=== PATIENT | female | born 1960 | race Caucasian/White ===

== ENCOUNTER 2020-03-27 18:45 | Inpatient (IN) | payer OTHER ==
[~2020-03-27] VITALS: Ht 165.1 cm; Wt 98.2 kg
--- NOTE | ~2020-03-27 | HEMODYNAMI ---
PATIENT:RAINA FRANZ MEDICAL RECORD: [id number] : 64 [place] [address] ADMISSION DATE: 03/27/20 Generatedon:03/28/202011:54 Patient name: RAINA FRANZ Patient #: [id number] : 1960 Date of study: 03/28/2020 Page: Of Hemodynamic Procedure Report Patient Data Patient Demographics Procedure consent was obtained First Name: RAINA Gender: Female Last Name: MARIA M : 1960 Patient #: [id number] Age: 59 year(s) Race: SSN: [id number] Additional ID: [id number] Contact details [address]: [address] [place] [address] State: [place] City: [place] Zip code: [address] Admission Admission Data Admission Date: 03/27/2020 Admission Time: 18:45 Room #: [facility] Procedure Procedure Types Cath Procedure Diagnostic Procedure Intra-Aortic Balloon Pump Sedation Charges Moderate Sedation up to 15 minutes Procedure Description Procedure Date Procedure Date: 03/28/2020 Procedure Start Time: 11:20 Procedure End Time: 11:53 Procedure Staff Name Function Blade Sim MD Performing Physician Savanna Pickering RT Monitor Luis Colindres RT Scrub Moy Cook RN Nurse Procedure Data Cath Procedure Fluoroscopy Diagnostic fluoroscopy Total fluoroscopy Time: 1.1 time: 1.1 min min Diagnostic fluoroscopy Total fluoroscopy dose: 27 dose: 27 mGy mGy Contrast Material Contrast Material Type Amount (ml) Isovue 300 0 Entry Location Entry Primary Successful Side Size Upsize Upsize Entry Closure Succes sful Closure Location (Fr) 1 (Fr) 2 (Fr) Remarks Device Remarks Femoral Left 8 Fr artery Estimated blood loss: 5 ml Procedure Complications No complications Procedure Medications Medication Administration Route Dosage Oxygen etCO2 Nasal cannula 2 l/min Lidocaine 2% added to field 20 Heparin Flush Bag added to field 2 bags (1000units/500ml NS) 0.9% NaCl I.V. 50 ml/hr Versed I.V. 1 mg Fentanyl I.V. 50 mcg Nitro (50mg/250 D5W) I.V. drip 10 mcg/min Versed I.V. 1 mg Fentanyl I.V. 50 mcg Heparin Drip I.V. drip 1000 units/hr (36727lmlcw/250 D5W) Nitro (50mg/250 D5W) Hemodynamics Rest Heart Rate: 83 (bpm) Snapshots Pre Cath Intra NCS Post Cath Vital Signs Time Heart Resp SPO2 etCO2 NIBP (mmHg) Rhythm Pain Sedation Rate (ipm) (%) (mmHg) Status Level (bpm) 11:08:24 83 21 94 0 125/78(98) NSR 0 (11) 10(A) , No pain 11:12:28 85 16 94 36.8 125/83(101) NSR 0 (11) 10(A) , No pain 11:16:34 82 14 97 42 118/77(97) NSR 0 (11) 10(A) , No pain 11:20:40 80 13 98 45.8 121/74(104) NSR 0 (11) 9(A) , No pain 11:24:49 78 13 98 44.3 113/69(88) NSR 0 (11) 9(A) , No pain 11:29:01 80 13 97 42.8 98/53(77) NSR 0 (11) 10(A) , No pain Medications Time Medication Route Dose Verified Delivered Reason Not es Effectiveness by by 11:11:16 Oxygen etCO2 2 l/min Blade Winter used for Nasal St Gary Cook RN procedure cannula 11:11:23 Lidocaine 2% added 20ml vial Blade Murguia for local to [facility] anesthetic field MD CAIN 11:11:29 Heparin Flush added 2 bags Blade Murguia used for Bag to [facility] procedure (1000units/500ml field MD CAIN NS) 11:11:37 0.9% NaCl I.V. 50 ml/hr Blade Winter Per [facility] Gary Cook RN physician 11:12:23 Nitro (50mg/250 I.V. 10 mcg/min Blade Winter Per con tinued D5W) drip St Gary Cook RN physician from icu 11:15:16 Versed I.V. 1 mg Blade Buffedenilson Britton RN sedation 11:15:22 Fentanyl I.V. 50 mcg Blade Britton RN sedation 11:20:24 Versed I.V. 1 mg Blade Britton RN sedation 11:20:28 Fentanyl I.V. 50 mcg Blade Winter for [facility] Gary Cook RN sedation 11:31:21 Nitro (50mg/250 mcg/min- dis continued D5W) discontinued per cecelia 11:33:13 Heparin Drip I.V. 1000 Blade Winter Per rogers ified via (81712elxng/250 drip units/hr St Gary Cook RN physician alaris pump D5W) MD with dr rai Procedure Log Time Note 10:51:27 Moy Cook RN sent for patient. Start room use. 10:53:30 Diagnostic Cath Status : Urgent 10:54:06 Informed consent obtained and on chart 11:07:18 Vital chart was started 11:11:16 Oxygen 2 l/min etCO2 Nasal cannula was administered by Moy Cook RN; used for procedure; Verbal order read back and verified. 11:11:23 Lidocaine 2% 20ml vial added to field was administered by Blade Sim MD; for local anesthetic; Verbal order read back and verified. 11:11:29 Heparin Flush Bag (1000units/500ml NS) 2 bags added to field was administered by Blade Sim MD; used for procedure; Verbal order read back and verified. 11:11:37 0.9% NaCl 50 ml/hr I.V. was administered by Moy Cook RN; Per physician; Verbal order read back and verified. 11:11:43 Time tracking: Regular hours (M-F 7:00 - 5:00) 11:11:47 Plan of Care:Hemodynamics will remain stable., Cardiac rhythm will remain stable., Comfort level will be maintained., Respiratory function will remain adequate., Patient/ family verbilizes understanding of procedure., Procedure tolerated without complication., Recovers from procedure without complications.. 11:11:52 Patient received from CVICU to CCL 2 Alert and oriented. Tansferred to table in Supine position. 11:11:53 Warm blankets applied, and vandana hugger turned on for patient comfort. 11:11:53 Correct patient and procedure confirmed by team. 11:11:53 ECG and BP/O2 sat monitors applied to patient. 11:11:54 Baseline sample Acquired. 11:12:00 Rhythm: sinus tachycardia 11:12:01 Full Disclosure recording started 11:12:04 H&P Date Dictated: 03/28/2020 New H&P dictated by physician.. 11:12:05 Pre-procedure instructions explained to patient. 11:12:06 Pre-op teaching completed and patient verbalized understanding. 11:12:08 Family unavailable. 11:12:10 Patient NPO since Midnight. 11:12:12 Is the patient allergic to Iodine/contrast media? No. 11:12:13 Was the patient premedicated? Yes 11:12:16 Is patient on blood thinner?No 11:12:18 Patient diabetic? Yes. 11:12:23 Nitro (50mg/250 D5W) 10 mcg/min I.V. drip was administered by Moy Cook RN; Per physician; continued from icu Verbal order read back and verified. 11:12:37 If diabetic: On Metformin? Yes 11:12:40 If on Metformin: Last Dose? 03/28/2020 11:12:42 Previous problem with sedation/anesthesia? No ? 11:12:44 Snore? Yes 11:12:45 Sleep apnea? No 11:12:46 Deviated septum? No 11:12:46 Opens mouth fully? Yes 11:12:48 Sticks out tongue? Yes 11:12:52 Airway obstruction? Yes copd 11:12:55 Dentures? Yes out 11:13:08 Patient pain scale 0/10 ?. 11:13:22 IV patent on arrival in right hand with 0.9% NaCl at [facility]. 11:13:25 Lab results completed and on chart. 11:13:30 Left groin area was prepped with chlora-prep and draped in sterile fashion 11:13:31 Alarms reviewed by R. N. 11:13:31 Sharps counted by scrub and verified by R.N. 11:13:33 Physician arrived 11:13:33 --------ALL STOP TIME OUT------ 11:13:34 Final Timeout: patient, procedure, and site verified with staff and physician. All members of the team are in agreement. 11:13:35 Left groin site verified by team. 11:13:38 Fire Safety Assessment: A--An alcohol-based skin anteseptic being used preoperatively., C--Open oxygen or nitrous oxide is being used., D--An ESU, laser, or fiber-optic light is being used. 11:13:42 Physical assessment completed. ASA score P 2 - A patient with mild systemic disease as per Blade Sim MD. 11:15:16 Versed 1 mg I.V. was administered by Moy Cook RN; for sedation; Verbal order read back and verified. 11:15:22 Fentanyl 50 mcg I.V. was administered by Moy Cook RN; for sedation; Verbal order read back and verified. 11:15:52 IABP 34cm balloon catheter ([id number]) opened to sterile field. 11:16:01 Sheath 8fr. Hornick 10cm opened to sterile field. 11:18:14 Use device set CATH PACK 11:18:15 ACIST Syringe (88245) opened to sterile field. 11:18:15 ACIST Hand Control (19605) opened to sterile field. 11:18:15 ACIST Manifold (85318) opened to sterile field. 11:18:16 Medline Cath Pack ([id number]) opened to sterile field. 11:18:16 Bag Decanter (2002S) opened to sterile field. 11:18:40 Sedation plan: IV Moderate Sedation Medication:Versed, Fentanyl 11:19:11 TUBING High Pressure Extension (IABP) opened to sterile field. 11:19:23 SUTURE SILK 2-0 BLK BR FS 18 I opened to sterile field. 11:20:24 Versed 1 mg I.V. was administered by Moy Cook RN; for sedation; Verbal order read back and verified. 11:20:24 Procedure started. 11:20:28 Fentanyl 50 mcg I.V. was administered by Moy Cook RN; for sedation; Verbal order read back and verified. 11:20:28 Local anesthetic to left femerol artery with Lidocaine 2% by Blade Smi MD.INITIAL ACCESS ONLY 11:20:37 A 8 Fr sheath was inserted into the Left Femoral artery 11:22:03 34cc IABP inserted into the LFA . 11:26:53 Augmentation: 1:2 per physician. 11:29:37 SUTURE SILK 2-0 BLK BR FS 18 I opened to sterile field. 11:30:46 Sheath and balloon pump sutured in with 2.0 silk 11:30:52 Procedure ended.(Physican Out) 11:31:02 Fluoroscopy time 01.10 minutes. 11:31:05 Fluoroscopy dose: 27 mGy 11:31:05 Flurop Dose total: 27 11:31:10 Dose Area Product 3260 mGy/cm. 11:31:14 Contrast amount:Isovue 300 0ml. 11:31:18 Maximum allowable dose exceeded? No. 11:31:18 Sharps counted by scrub and verified by R.N. 11:31:21 Nitro (50mg/250 D5W) mcg/min- discontinued was administered by ; ; discontinued per cecelia Verbal order read back and verified. 11:31:22 Insertion/operative site no bleeding no hematoma. 11:31:36 Post Procedure Pulses reassessed and unchanged 11:31:42 Post procedure rhythm: unchanged. 11:31:44 Estimated blood loss: 5 ml 11:31:45 Post procedure instruction explained to patient.Patient verbalizes understanding. 11:31:46 Patient needs reinforcement of post procedure teaching. 11:31:56 Procedure type changed to Cath procedure, Diagnostic procedure, Intra-Aortic Balloon Pump, Sedation Charges, Moderate Sedation up to 15 minutes 11:31:57 Procedure and supply charges have been captured, reviewed, submitted and are correct. 11:32:01 Procedure Complication : No complications 11:32:03 Vital chart was stopped 11:32:05 Operative report dictated upon procedure completion. 11:32:06 See physician's report for complete and final results. 11:32:08 Report given to CVICU. 11:33:13 Heparin Drip (87458odkuc/250 D5W) 1000 units/hr I.V. drip was administered by Moy Cook RN; Per physician; verified via alaris pump with dr rai Verbal order read back and verified. 11:53:21 Procedure ended. 11:53:21 Full Disclosure recording stopped 11:53:27 End room use (Document Last) 11:54:00 End room use (Document Last) 11:54:16 End room use (Document Last) Device Usage Item Name Manufacture Quantity Catalog Number [facility] Lot# / Charge Number Stock Stock Serial# Code IABP 34cm [facility] 1 [id number] 698035 [id number] 1 Mobile-XL [facility] catheter ([id number]) ([id number]) Sheath 8fr. Terumo 1 [id number] 261504 091988 5 5 Hornick 10cm ACIST Syringe Acist 1 90949 022108 883884 027423 20 (41568) [employer] ACIST Hand Acist 1 21988 706925 853991 217600 5 Control (36674) [employer] ACIST Manifold Acist 1 21342 274856 164424 928882 5 (72176) [employer] Medline Cath Medline 1 [id number] 578110 58033 708137 5 Pack ([id number]) Bag Decanter Microtek 1 2001S 649819 27027 397278 5 (2001S) Medical Inc. TUBING High Merit 1 [id number] 684124 761028 951661 5 Pressure Medical Extension (IABP) SUTURE SILK 2-0 Ethicon 2 685H 598276 171467 5 BLK BR FS 18 I Signature Audit [place] Stage Time Signature Unsigned Intra-Procedure 03/28/2020 Savanna Pickering 11:54:00 AM RT(R) Intra-Procedure 03/28/2020 Moy Cook RN 11:54:16 AM Intra-Procedure 03/28/2020 Blade Blakely 11:54:33 AM Gary CAIN Signatures Performing Physician : Signature : Blade Sim MD Date : Time : Monitor : Savanna Pickering RT Signature : Date : Time : Nurse : Moy Cook RN Signature : Date : Time : [facility] [address] [place] [address]
--- NOTE | 2020-03-27 19:21 | NUR ---
TALKED TO DR. STRONG IN [facility] AND HE WENT IN AND TALKED WITH THE PATIENT. NO NEW ORDERS AT THIS TIME.
--- NOTE | 2020-03-27 19:33 | NUR ---
REPORT RECEIVED AND ROUNDING COMPLETE. PATIENT LAYING BED IN IN LOW FOWLERS, WEARING NASAL CANNULA WITH O2 AT 2L. PIV TO THE RIGHT AC THAT IS SALINE LOCKED AT THIS TIME. PATIENT STATES SHE HAS CHEST AND NEEDS A MORPHINE SHOT. NO ORDERS FOR MEDICATIONS, WILL CALL MD. NO DISTRESS NOTED, CALL LIGHT WITHIN REACH AND BED IN LOWEST LOCKED POSITION.
--- NOTE | 2020-03-27 20:29 | NUR ---
CALLED AND TALKE TO DR. STRONG ABOUT PATIENT AND THE FACT THAT SHE HAS NO ORDERS AND IS HAVING CHEDT PAIN, EXPLAINED WHAT THE PATIENT CAME HER FROM AND FOR. HE STATES HE WOULD LIKE THE PAT[facility] CALLED [facility] TO MAKE ARRAGEMNETS.
[2020-03-27] MEDS ORDERED: MELATONIN10 M1 PO (21:07)
[2020-03-27] MEDS ORDERED: CELEXA20 MG PO (21:11)
[2020-03-27] MEDS ORDERED: LIPITOR10 MG PO (21:11)
[2020-03-27] MEDS ORDERED: INDERAL LA160 MG PO (21:12)
[2020-03-27] MEDS ORDERED: GLUCOPHAGE500 MG PO (21:13)
[2020-03-27] MEDS ORDERED: NEURONTIN800 MG PO (21:14)
--- NOTE | 2020-03-27 22:40 | NUR ---
REPORT CALLED TO CVICU.
[2020-03-28] VITALS (46 sets, daily range): BP systolic 88–157; BP diastolic 48–81; Ht 165.1 cm; Wt 98.2 kg
[2020-03-28 06:26] LABS: BASOPHILS 0.2 % (0-2); EOSINOPHILS 1.1 % (0-7); HEMATOCRIT 46.8 % (36.0-48.0); HEMOGLOBIN 14.9 g/dL (12-16); IMMATURE GRANULOCYTES 0.2 % (0-5); LYMPHOCYTES 22.7 % (15-50); MCH 27.9 pg (26.0-34.0); MCHC 31.8 g/dL (31.0-37.0); MCV 87.5 fL (80.0-100.0); MEAN PLATELET VOLUME 9.4 fL (7.4-10.4); MONOCYTES 5.7 % (2-11); NEUTROPHILS 70.1 % (40-80); PLATELET COUNT 300 10x3/uL (130-400); RBC 5.35 10x6/uL (4.00-5.40); WBC 11.6 10x3/uL (4.8-10.8)
[2020-03-28 06:37] LABS: APTT 35.2 SECONDS (22.8-39.4); INR 0.98 (0.85-1.17); PROTIME 12.9 SECONDS (11.6-15.0)
[2020-03-28 06:44] LABS: ANION GAP 11.6 mmol/L (8-16); CALCIUM 8.2 mg/dL (8.5-10.1); CARBON DIOXIDE 28.1 mmol/L (21.0-32.0); MAGNESIUM - SERUM 1.8 mg/dL (1.8-2.4); PHOSPHOROUS 3.7 mg/dL (2.5-4.9); POTASSIUM - SERUM 3.7 mmol/L (3.5-5.1)
--- NOTE | 2020-03-28 07:00 | NUR ---
AWAKES TO VERBAL STIMULI, SLEEPY, SKIN WARM AND DRY. IV RIGHT HAND WITHOUT REDNESS OR SWELLING INFUSING WITH 1/2NS AT 50 ML HOUR, NTG GTT AT 5 MCG. STATES SHE STILL HAS SOME CHEST PAIN. UP TO BSC WITH MINIMAL ASSISTANCES WITH LINES TO VOID. VERY TALKATIVE
--- NOTE | 2020-03-28 08:30 | NUR ---
DR. STRONG HERE TALKED WITH PATIENT. ORDERS RECEIVED
--- NOTE | 2020-03-28 10:00 | NUR ---
PATIENT MOTHER HERE UPDATE GIVEN
--- NOTE | 2020-03-28 10:59 | NUR ---
TO THAI MASSEUR FOR BALLOON PUMP. HODGE CATH INSERTED IN BANQUET STEWARDESS WITH IMMEDIATE RETURN OF CLEAR URINE. PATIENT TOLERATED WELL. MOTHER IN ROOM. PATIENT TALKED WITH ON PHONE. CONSENTS RECEIVED.
--- NOTE | 2020-03-28 12:10 | NUR ---
RETURNED TO ROOM. AWAKES EASILY SKIN WARM AND DRY. IAPB IN LEFT FEMEROL DRESSING DRY AND INTACT. 1:1 RATIO PERIPHERAL PULSES ALL PALABLE. SOME CHEST PAIN. HODGE CATH PATENT. RESP DEEP AND REGULAR. OXYGEN AT 2 LITERS PER NC. HEPARIN GTT INFUSING AT 1000 UNITS HOUR PER RIGHT PERIPHERAL IV. 1/2NS AT 50 ML HOUR. NTG OFF. RESP DEEP AND REGULAR NONLABORED. MONITOR SR.
--- NOTE | 2020-03-28 13:52 | NUR ---
AWAKES EASILY ALERT. PERIPHERAL PULSES PALABLE. DRESSING DRY AND INTACT. CHEST PAIN ABOUT A 5. SKIN WARM AND DRY.
--- NOTE | 2020-03-28 15:18 | NUR ---
ICE CHIPS AND OCC SIP OF WATER. PERIPHERAL PULSES PALABLE. DRESSING LEFT GROIN DRY AND INTACT. MORPHINE GIVEN FOR CHEST PAIN. TALKING ON PHONE TO FAMILY
[2020-03-28 20:56] LABS: ALBUMIN 3.2 g/dL (3.4-5.0); BILIRUBIN - TOTAL 0.36 mg/dL (0.2-1.3); PROTEIN - SERUM 6.8 g/dL (6.4-8.2); T4 THYROXIN - FREE 1.35 ng/dL (0.76-1.46); THYROID STIMULATING HORMONE 3.1 uIU/mL (0.36-3.74); URIC ACID 6.9 mg/dL (2.6-7.2)
[2020-03-29] VITALS (49 sets, daily range): BP systolic 90–136; BP diastolic 59–75
[2020-03-29 00:27] LABS: APTT 35.1 SECONDS (22.8-39.4); INR 0.98 (0.85-1.17); PROTIME 12.9 SECONDS (11.6-15.0)
[2020-03-29 00:28] LABS: BASOPHILS 0.2 % (0-2); EOSINOPHILS 1.2 % (0-7); IMMATURE GRANULOCYTES 0.2 % (0-5); LYMPHOCYTES 20.9 % (15-50); MCH 28.2 pg (26.0-34.0); MCHC 32.4 g/dL (31.0-37.0); MCV 86.9 fL (80.0-100.0); MEAN PLATELET VOLUME 9.2 fL (7.4-10.4); MONOCYTES 5.4 % (2-11); NEUTROPHILS 72.1 % (40-80); PLATELET COUNT 438 10x3/uL (130-400); RBC 4.26 10x6/uL (4.00-5.40); WBC 17.3 10x3/uL (4.8-10.8)
[2020-03-29 00:49] LABS: ALBUMIN 3.3 g/dL (3.4-5.0); ANION GAP 13.3 mmol/L (8-16); BILIRUBIN - TOTAL 0.47 mg/dL (0.2-1.3); CALCIUM 8.8 mg/dL (8.5-10.1); CARBON DIOXIDE 28.7 mmol/L (21.0-32.0); CREATININE - SERUM 1.2 mg/dL (0.6-1.3); PHOSPHOROUS 4.2 mg/dL (2.5-4.9); PROTEIN - SERUM 7.6 g/dL (6.4-8.2); T4 THYROXIN - FREE 1.29 ng/dL (0.76-1.46); THYROID STIMULATING HORMONE 2.83 uIU/mL (0.36-3.74); URIC ACID 8.1 mg/dL (2.6-7.2)
[2020-03-29 05:11] LABS: BASOPHILS 0.2 % (0-2); EOSINOPHILS 1.4 % (0-7); HEMATOCRIT 36.9 % (36.0-48.0); HEMOGLOBIN 11.9 g/dL (12-16); IMMATURE GRANULOCYTES 0.3 % (0-5); LYMPHOCYTES 18.6 % (15-50); MCH 28.4 pg (26.0-34.0); MCHC 32.2 g/dL (31.0-37.0); MCV 88.1 fL (80.0-100.0); MEAN PLATELET VOLUME 9.2 fL (7.4-10.4); MONOCYTES 6.9 % (2-11); NEUTROPHILS 72.6 % (40-80); PLATELET COUNT 426 10x3/uL (130-400); RBC 4.19 10x6/uL (4.00-5.40); RDW 15.8 % (11.5-14.5); WBC 16.8 10x3/uL (4.8-10.8)
[2020-03-29 05:25] LABS: ANION GAP 14.3 mmol/L (8-16); CALCIUM 8.8 mg/dL (8.5-10.1); CARBON DIOXIDE 27.5 mmol/L (21.0-32.0); CREATININE - SERUM 1.1 mg/dL (0.6-1.3); MAGNESIUM - SERUM 1.7 mg/dL (1.8-2.4); PHOSPHOROUS 4.6 mg/dL (2.5-4.9); POTASSIUM - SERUM 3.8 mmol/L (3.5-5.1)
[2020-03-29 06:29] LABS: BILIRUBIN NEGATIVE (NEGATIVE); GLUCOSE NEGATIVE (NEGATIVE); KETONE NEGATIVE (NEGATIVE); NITRITE POSITIVE (NEGATIVE); RED CELLS - URINE 0-5 /hpf (0-5); UROBILINOGEN NORMAL (NORMAL); WHITE CELLS - URINE 0-5 /hpf (NEGATIVE)
[2020-03-29 06:30] LABS: BACTERIA FEW /hpf (NEGATIVE); EPITHELIAL CELLS 0-5 /hpf (0-5)
--- NOTE | 2020-03-29 13:40 | NUR ---
PT ARRIVED TO UNIT AROUND 1330. ON VENT SIMV, R-14, TV 500, FIO2 100%, PEEP 5, PS 10. ETT 7.5 23 AT LIP LINE. SWAN BOBBY TO RIJ WITH PLASMOLYTE AT 100ML/HR, DOPAMINE AT 3MCG/KG/MIN AND BELLO AT 0.6 MCG/KG/MIN. RIGHT CHRIS SECURED IN PLACE WITH WRIST PROTECTOR. MIDSTERNAL INCISION DRESSING C/D/I. SUBSTERNAL CT X 2 TO 20CM SUCTION, NO AIR LEAK NOTED. RACHEL DRAIN IN PLACE. IABP TO LEFT GROIN C/D/I. HODGE CATHETER IN PLACE WITH YELLOW URINE NOTED. RLE HARVEST SITES WRAPPED IN COBAN DRESSING. WRIST RESTRAINTS IN PLACE PER ORDER. SAFETY MEASURES IN PLACE. WILL CONTINUE TO MONITOR CLOSELY.
--- NOTE | 2020-03-29 14:25 | OP ---
PATIENT NAME: RAINA FRANZ MEDICAL RECORD: [id number] :64 LOCATION:[place] ADMISSION DATE:03/27/20 SURGEON: DEVIN STYLES MD DATE OF OPERATION: 03/28/2020 PROCEDURE: Intraaortic balloon pump. The patient transferred from [place] with critical coronary artery disease, ongoing unstable symptomatology as well as volume overload, brought to labor economics professor on an urgent basis for intraaortic balloon pump placement. DESCRIPTION OF PROCEDURE: Left femoral artery was cannulated via modified Seldinger technique under fluoroscopic guidance. We placed the intraaortic balloon pump up to the level of the veronica. Placement of balloon began at 1:1 with good augmentation. Sheath was sutured in place as well as the pump itself. The patient was started on heparin drip, returned to the CVICU in critical, but stable condition. NTS:[id number] Voice Confirmation ID: [id number] DOCUMENT ID: [id number] DEVIN STYLES MD at 1425 CC: [id number] DICTATION DATE: 03/28/20 1141 INBOUND INGREDIENT LOGISTICS SPECIALIST: 03/28/20 1832 ADM IN [facility] [address] [place] [id number]
--- NOTE | 2020-03-29 17:41 | NUR ---
DR. LARSEN PAGED TO NOTIFY THAT PT WILL NOT BE EXTUBATED. WILL LET REST OVER NIGHT PER DR. STRONG. SEDATION HAS BEEN INITIATED PER ORDER.
--- NOTE | 2020-03-29 18:29 | NUR ---
FIO2 TURNED DOWN TO 80% AT THIS TIME.
--- NOTE | 2020-03-29 19:20 | NUR ---
PT SEDATED, OPENS EYES TO STIMULI, ETT PATENT TO VENT ON SIMV,BILAT CRACKLES NOTED RIGHT IJ CVL INTACT WITH SWAN BOBBY CATHETER IN PLACE AND LOCKED @ 46CM, RIGHT RADIAL A-LINE INTACT AND ZEROED, MIDSTERNAL INCISION WITH DRESSING INTACT , SUBSTERNAL DRESSING INTACT WITH CHEST TUBES X2 AND RACHEL DRAIN DRAINING BLOODY DRAINAGE, IABP CATH TO LEFT GROIN, HODGE PATENT TO BSD WITH CLEAR YELLOW OUTPUT, COBAN TO RIGHT LEG HARVEST SITE, BILAT SWR IN USE, VITALS STABLE
[2020-03-30] VITALS (101 sets, daily range): BP systolic 88–130; BP diastolic 50–83
[2020-03-30 05:28] LABS: ALBUMIN 2.9 g/dL (3.4-5.0); ANION GAP 14.1 mmol/L (8-16); BILIRUBIN - TOTAL 0.51 mg/dL (0.2-1.3); CALCIUM 8.1 mg/dL (8.5-10.1); CARBON DIOXIDE 26.1 mmol/L (21.0-32.0); MAGNESIUM - SERUM 2.1 mg/dL (1.8-2.4); PHOSPHOROUS 3.7 mg/dL (2.5-4.9); POTASSIUM - SERUM 4.2 mmol/L (3.5-5.1)
[2020-03-30 05:40] LABS: HEMATOCRIT 34.5 % (36.0-48.0); HEMOGLOBIN 10.8 g/dL (12-16); MCH 27.6 pg (26.0-34.0); MCHC 31.3 g/dL (31.0-37.0); MCV 88.2 fL (80.0-100.0); MEAN PLATELET VOLUME 9.3 fL (7.4-10.4); PLATELET COUNT 304 10x3/uL (130-400); RBC 3.91 10x6/uL (4.00-5.40); RDW 15.9 % (11.5-14.5); WBC 24.7 10x3/uL (4.8-10.8)
[2020-03-30 06:44] LABS: LYMPHOCYTES 3 % (15-50); MONOCYTES 1 % (2-11); NEUTROPHILS 93 % (40-80); PLATELET ESTIMATE NORMAL
--- NOTE | 2020-03-30 07:32 | NUR ---
Pt resting comfortably. VENT SIMV R-14, TV 500, FIO2 50%, PS 10, PEEP 5. ETT Size 7.5 21 a lip midline. Midsternal dressing c/d/i. Substernal CT x 2 to 20cm suction, no air leak noted. Right IJ with Plasmolyte at 100ml/hr, insulin at 1unit/hr, zinacef at 12.8ml/hr, propfol at 20mcg/kg/min and domapine at 3mgcc/kg/min. Right radial ryan secured with wrist protector. wrist restraints in place per order. Left groin IAMP in place, dressing c/d/i, 1:1. RLE harvest sites with coban dressing in place. James catheter in place with concentrated yellow urine noted. Current temp 100.4. [place] Laura to RIJ approx 46cm, secured. Safety measures in place. Will continue to monitor closely.
--- NOTE | 2020-03-30 08:12 | NUR ---
Call received from son. Pt's full name and date of provided. Was told that pt is stable.
--- NOTE | 2020-03-30 08:29 | NUR ---
Dr. Bui at bedside. Aware of slight tachycardia. Continue with dopamine at 3mcg/kg/min at this time. IABP changed to 1:2. Will continue to monitor closely.
--- NOTE | 2020-03-30 08:59 | NUR ---
Call received from Kristen pt's daughter. Passcode verified. Update on pt status given.
--- NOTE | 2020-03-30 10:36 | NUR ---
FIO2 TURNED DOWN TO 45% BY RT.
--- NOTE | 2020-03-30 12:10 | NUR ---
Nutrition Follow-up: POD 1 CABG. Intubated/sedated. Receiving Diprivan @ 8.2 mL/hr (provides 217 kcal) at time of visit this AM. Diet: NPO Wt: 203.4# (03/30) Labs noted: Glu 155, Ca 8.1, Alb 2.9 Meds noted: Diprivan, Protonix, electrolyte protocol -If pt remains intubated, rec initiate nutrition support within 24-48 hrs; if TF initiated, rec Pulmocare @ goal rate of 40 mL/hr + H2O flushes 25 mL q hr. -Monitor wt. -RD following.
--- NOTE | 2020-03-30 12:16 | NUR ---
IABP changed to 1:[address] Bui's orders.
--- NOTE | 2020-03-30 12:55 | NUR ---
IABP DC'D. FEM STOP APPLIED TO SITE. BP 98/54 AT THIS TIME. HR 109. WILL CONTINUE TO MONITOR.
--- NOTE | 2020-03-30 13:46 | NUR ---
Call received from spouse. Updated on pt's status. Pt resting comfortably. Will continue to monitor closely.
--- NOTE | 2020-03-30 14:08 | NUR ---
Fem stop removed at this time. Site soft to palpation. No bleeding noted. Pt resting comfortably. Will continue to monitor closely.
--- NOTE | 2020-03-30 16:40 | NUR ---
HR 114-118. Dr. Bui's nurse Linn notified. Tylenol suppository given for fever 100.8. Morphine 2mg iv given for pain. Will continue to monitor closely.
--- NOTE | 2020-03-30 17:13 | OP ---
PATIENT NAME: RAINA FRANZ MEDICAL RECORD: [id number] :64 [place]ATION[place] [id number] ADMISSION DATE:03/27/20 SURGEON: ARUN STRONG MD DATE OF OPERATION: 03/29/2020 SURGEON: Arun Strong MD PROCEDURE PERFORMED: 1. Coronary artery bypass graft times 2 (left internal mammary to LAD, reverse saphenous vein graft from aorta to obtuse marginal). 2. Endoscopic saphenous vein harvest. PREOPERATIVE DIAGNOSES: Myocardial infarction, intraaortic balloon pump, and severe multivessel coronary artery disease. POSTOPERATIVE DIAGNOSES: Myocardial infarction, intraaortic balloon pump, and severe multivessel coronary artery disease. ANESTHESIA: General endotracheal anesthesia. ESTIMATED BLOOD LOSS: Total cardiopulmonary bypass with Cell Saver retransfusion. COMPLICATIONS: None. SPECIMENS: None. CONDITION: Stable. DISPOSITION: CV ICU. OPERATIVE FINDINGS: 1. Hypoxemia responded to suctioning. 2. Transesophageal echocardiography was used to look at the atrial and ventricular septum and no shunt was noted. Good contractility was noted. 3. Good quality left internal mammary artery to LAD 1.5 mm vessel. 4. Small obtuse marginal 1.25 mm vessel, the diagonal was very small and not grafted. 5. Separation of cardiopulmonary bypass on low-dose dopamine. OPERATIVE INDICATION: Coronary artery disease and unstable angina. DESCRIPTION OF PROCEDURE: The patient was brought to the operating suite, balloon pump had been placed the previous day by cardiology. Endoscopic vein harvest, of the right lower extremity was performed. Median sternotomy incision was made. Left hemisternum was elevated and the internal mammary artery vein was taken down as a pedicle graft. Pericardium was opened. Heparin was given. The area was cannulated. Dual stage venous cannula was inserted. Activated clotting time was appropriately elevated. The internal mammary was made ready for anastomosis. The patient was placed on cardiopulmonary bypass. Antegrade and retrograde cardioplegic cannulas were inserted. Sites for distal anastomosis were selected. The patient was cooled. Crossclamp was placed. Cardioplegia was given antegrade and retrograde and this was repeated at 15 to 20 minute intervals including down the completed vein graft. OPERATIVE REPORT [id number] RAINA FRANZ Distal anastomosis standard technique. Proximal anastomosis with single cross-clamp technique. The crossclamp was removed. Proximal and distal anastomotic sites inspected for bleeding. The patient was fully rewarmed, weaned from cardiopulmonary bypass and was stable. The patient was decannulated. Aortic cannulation site was oversewn with a pledgeted Prolene suture. Thorough irrigation was undertaken. Hemostasis was assured. Protamine was given. Drains were placed mediastinum of the left pleural cavity. Atrial and ventricular pacing wires were placed. Pericardial fat was loosely reapproximated. The internal mammary harvest site was inspected for bleeding. Left chest was evacuated and irrigated. Sternum closed with wires. Fascia was closed. Subcutaneous tissue closed. Skin was closed. Dermabond was placed. The needle and sponge count reported to be correct. The patient was taken to ICU in stable condition. TRANSINT:[id number] Voice Confirmation ID: [id number] DOCUMENT ID: [id number] cc: Ernesto Chaparro, ARUN STRONG MD at 1713 CC: DR. FRANTZ SANTOS and MYRIAM MCGOVERN MD [id number] DICTATION DATE: 03/29/20 181 CAGE MANAGER: 03/30/20 0308 ADM IN [facility] [address] [place] [address]
--- NOTE | 2020-03-30 17:20 | NUR ---
HR 118. DR. STRONG NOTIFIED. DOPAMINE DISCONTINUED AT THIS TIME. WILL CONTINUE TO MONITOR CLOSELY.
--- NOTE | 2020-03-30 18:00 | NUR ---
Pt went into A-FIB uncontrolled. Dr. Bui notified. Orders received. Amiodarone 150mg bolus givne. Amiodarone drip 1mg/min initiated. Will continue to monitor.
--- NOTE | 2020-03-30 18:02 | NUR ---
BP 93/51. DR. Bui ordered 250 fluid bolus over 1hr.
--- NOTE | 2020-03-30 18:55 | NUR ---
Dr. Bui updated on pt status. BP 102/56, Hr 106-115. Last hour urine ouput 30ml, cardiac index 2.0. On juan at 0.2mcg/kg/min.
--- NOTE | 2020-03-30 19:00 | NUR ---
REPORT RECEIVED. INITIAL ASSESSMENT COMPLETE. PT SEDATED VIA DIPRIVAN AND PRN MORPHINE SIVP. ORALLY INTUABATED SIMV RATE 14, FIO2 40, TV 500, PS 10,PEEP 5. SEE RESP NOTES FOR VENT SUPPORT CHANGES. CHEST SOUNDS FINE CRACKLES AND RHONCHI MINIMAL CLEARING AFTER SUCTIONING MOD AMOUNT THICK CLEAR SECRETIONS ORALLY AND VIA ORAL ETT. RIGHT IJ SEE IV FLOWSHEET FOR DRIP AND DRIP CHANGES. SWAN BOBBY IN PLACE APPROX 46 CM SECURED. RIGHT RAD ARTLINE WITH PROTECTIVE ARMBOARD IN PLACE. GOOD WAVE FORM ZEROED AND CALIBRATED CORRELATING WELL. CT SITES CLEAN DRY AND INTACT NO AIR LEAKS NOTED. RACHEL DRAIN IN PLACE DRESSING CDI WITH SEROSANGUINOUS DRAINAGE COMPRESSED. MID STERNAL AND SUBSTERNAL DRESSINGS CLEAN DRY AND INTACT. HODGE IN PLACE. SIDE RAILS UP TIMES 3 FOR SAFETY SEE FLOWSHEETS FOR COMPLETE INFO AND CHANGES. CM READING UNCONTROLLED AFIB DR STRONG AWARE AMIO DRIP INFUSING. WILL CONTINUE T0 MONITOR.
--- NOTE | 2020-03-30 19:30 | NUR ---
LEFT GROIN PREVIOUS IABP SITE WITH DRESSING NOTED CLEAN DRY AND INTACT. RIGHT GROIN PREVIOUS CATH SITE DRESSING NOTED CDI. PULSES PALPABLE AND PER DOPPLER
--- NOTE | 2020-03-30 23:00 | NUR ---
REASSESSMENT COMPLETE NO CHANGES CM READING UNCONTROLLED AFIB BACK AND FORTH TO CONTROLLED RATE 98-114. AMIO CONTINUES. WILL CONTINUE TO MONITOR. MORPHINE PRN NEEDED,
[2020-03-31] VITALS (35 sets, daily range): BP systolic 98–147; BP diastolic 51–75
--- NOTE | 2020-03-31 03:00 | NUR ---
REASSESSMENT COMPLETE NO CHANGES CPOC
--- NOTE | 2020-03-31 03:36 | NUR ---
RADIOLOGY HERE FOR CHEST XRAY
--- NOTE | 2020-03-31 04:00 | NUR ---
COMPLETE CHG BED BATH AND LINEN CHANGE. SUBSTERNAL CT AND TPM WIRE DRESSINGS CHANGES PER ORDERS,
[2020-03-31 05:42] LABS: RBC 2.82 10x6/uL (4.00-5.40); WBC 20.2 10x3/uL (4.8-10.8)
[2020-03-31 05:43] LABS: BASOPHILS 0.1 % (0-2); EOSINOPHILS 3.2 % (0-7); HEMATOCRIT 25.2 % (36.0-48.0); HEMOGLOBIN 7.7 g/dL (12-16); IMMATURE GRANULOCYTES 0.6 % (0-5); LYMPHOCYTES 9.2 % (15-50); MCH 27.3 pg (26.0-34.0); MCHC 30.6 g/dL (31.0-37.0); MCV 89.4 fL (80.0-100.0); MEAN PLATELET VOLUME 9.6 fL (7.4-10.4); NEUTROPHILS 76.9 % (40-80); PLATELET COUNT 226 10x3/uL (130-400); RDW 16.3 % (11.5-14.5)
[2020-03-31 06:25] LABS: ALKALINE PHOSPHATASE 53 U/L (30-120); ALT (SGPT) 25 U/L (10-68); BILIRUBIN - TOTAL 0.24 mg/dL (0.2-1.3); CALC OSMOLALITY 280 mosm/kg (275-300); CARBON DIOXIDE 24.4 mmol/L (21.0-32.0); CHLORIDE - SERUM 103 mmol/L (98-107); CREATININE - SERUM 0.8 mg/dL (0.6-1.3); GLUCOSE 149 mg/dL (74-106); MAGNESIUM - SERUM 2.3 mg/dL (1.8-2.4); POTASSIUM - SERUM 3.9 mmol/L (3.5-5.1); PROTEIN - SERUM 4.5 g/dL (6.4-8.2); SODIUM 140 mmol/L (136-145); UREA NITROGEN 10 mg/dL (7-18); eGFR NON AFRICAN AMERICAN 78 mL/min (90-120)
[2020-03-31 06:27] LABS: ALBUMIN 1.8 g/dL (3.4-5.0); CALCIUM 6.3 mg/dL (8.5-10.1)
--- NOTE | 2020-03-31 11:26 | OP ---
PATIENT NAME: RAINA FRANZ MEDICAL RECORD: [id number] :64 LOCATION:[id number] ADMISSION DATE:03/27/20 SURGEON: ARUN STRONG MD DATE OF OPERATION: 03/30/2020 SURGEON: Arun Strong MD PROCEDURE: Percutaneous removal of intraaortic balloon pump left common femoral. DIAGNOSIS: Coronary artery disease. DESCRIPTION OF PROCEDURE: With the patient supine in the intensive care with a heart rate, blood pressure, and pulse oximetry monitor, the patient was intubated and sedated. Sutures removing the catheter were removed and the catheter was removed intact. Direct pressure was held. There was some bleeding initially, but after direct pressure for 15 minutes, a FemoStop was placed. Good Doppler left posterior tibial was present throughout. No apparent complications. TRANSINT:[id number] Voice Confirmation ID: [id number] DOCUMENT ID: [id number] ARUN STRONG MD at 1126 CC: [id number] DICTATION DATE: 03/30/20 175 NON CLINICAL ADVISOR: 03/31/20 0145 ADM IN [facility] [address] [place] [address]
--- NOTE | 2020-03-31 14:07 | NUR ---
0700-RECIEVED PER FLOW SHEET-DIPRIVAN INFUSING FOR LEXUS OF 2-RESPONDS TO VERBAL WITHOUT DIFFICULTY 0845-DR LARSEN IN UNIT-STATUS REPORT GIVEN-RT NOTIFIED 1000-PT PLACED ON CPAP
--- NOTE | 2020-03-31 14:36 | NUR ---
1115-PORT CXR REPEATED ORDERED BY DR LARSEN 1230-DR STRONG AT BEDSIDE-REVIEWED STATUS-ORDERS RECIEVED AND NOTED 1310-DR LARSEN CALLED UNIT-ORDRE RECIEVED AND NOTED- 1315-RT AT BEDSIDE-PT EXTUBATED PER PROTOCOL--PT VERY POOR AT FOLLOWING DIRECTION-NODDED NO WHEN ASKED TO COUGH WITH EXTUBATION-DIFFICULT TO ASCERTAIN IF COGNITIVE OR NON COMPLIANT 1415-C/O PAIN-OXYCODONE 10 PO GIVEN FOR CONTINUED C/O OF INCISIONAL PAIN-SPLINTING WITH OR PILLOW DEMONSTRATED AND EXPLAINED TO PT-PT IN TURN ACCEPTED PILLOW AND IS USING -USING ORAL SUCTION DEMONSTRATED BY RT
--- NOTE | 2020-03-31 17:19 | NUR ---
1400-R CHRIS D/C ORDERED-COURTNEY ROSALES D/C ORDERED-PER PROTOCOL-POOR COMPREHENSION FROM PT- 1530-ASSISTED PT TO CHAIR-ABLE TO FOLLOW DIRECTION-AGITATED REGARDING LOCATION OF CELL PHONE-STATING IN HER OTHER ROOM AND STAFF NEEDS TO GET IT- CALLED UNIT FOR UPDATE-SAME GIVEN-INQUIRED ON LOCATION OF CELL PHONE-SAME STATED IT IS IN THEIR VAN-LIKE HE TOLD HER-[place] PROVIDED FOR PT- 1640-PT STATED UPPER CHEST INCISION -SEVERE PAIN-STATED L ARM HURTING--
--- NOTE | 2020-03-31 19:05 | NUR ---
RECIVED REPORT. PT IS SITTING UP IN CHAIR A&OX4, VSS.
--- NOTE | 2020-03-31 22:00 | NUR ---
WENT INTO ROOM TO DO I/O'S .PT VOICED"I WANT TO GET IN BED". ASSISTED WITH MINIMAL ASSIST BY USING WALKER AND SAFLY TO BED. WHILE STANDING AND WALKING TO BED PT VOICED"IM PEEING". VISUALIZED THAT YELLOW URINE WAS RUNNING DOWN PT LEG AND INTO FLOOR, MEDIUM AMOUNT. ONCE IN BED I REMOVED HER SCD/BENNY BILAT AND CLEANED HER LOWER EXTREMITES WITH CHG CLEANSER AND APPLIED NEW BENNY AND SCD'S BILAT. HODGE CATHETOR BULB IS INTACT, IRRIGATED WITH 30ML OF NS AND PT PUT OUT 175ML OF YELLOW URINE. SHE TOLERATED WELL WITH NO C/O OF PAIN. HODGE HANGING BELOW BLADDER ON RIGHT SIDE OF BED. CHESTUBE DRAINAGE WAS MEASURED AND PUT IN I/O FLOWSHEET. REPOSITIONED PT IN BED FOR COMFORT. HER BED IS LOW,SIDE RIALSX2, CALL LIGTH IS WITHIN REACH. WILL CONTINUE TO MONITOR
[2020-04-01] VITALS (23 sets, daily range): BP systolic 96–122; BP diastolic 46–100
--- NOTE | 2020-04-01 03:15 | NUR ---
RE-ASSESSMENT COMPLETE, WILL DOC IN FLOWSHEET. VSS. PT VOICES NO NEEDS AT THIS TIME
[2020-04-01 06:07] LABS: HEMATOCRIT 28.1 % (36.0-48.0); HEMOGLOBIN 8.6 g/dL (12-16); MCH 27.5 pg (26.0-34.0); MCHC 30.6 g/dL (31.0-37.0); MCV 89.8 fL (80.0-100.0); MEAN PLATELET VOLUME 9.2 fL (7.4-10.4); PLATELET COUNT 224 10x3/uL (130-400); RBC 3.13 10x6/uL (4.00-5.40); RDW 16.2 % (11.5-14.5); WBC 22.3 10x3/uL (4.8-10.8)
--- NOTE | 2020-04-01 06:11 | NUR ---
CHANGED SUBSTERNAL DRESSING WHILE MAINTAING STERIL FIELD, THERE WAS SCANT SEROUS DRAINAGE ON 4X4. PT TOLERATED WELL WITH NO C/O. AFTERWARDS ASSSITED UP TO CHAIR FOR MORNIGN USING WALKER. VSS. CHAIR WHEELS ARE LOCKED, CALL LIGTH WITHIN REACH. WILL CONITNUE TO MONITOR
[2020-04-01 06:12] LABS: ALBUMIN 2.2 g/dL (3.4-5.0); ALKALINE PHOSPHATASE 67 U/L (30-120); ALT (SGPT) 30 U/L (10-68); BILIRUBIN - TOTAL 0.23 mg/dL (0.2-1.3); CALC OSMOLALITY 279 mosm/kg (275-300); CALCIUM 7.5 mg/dL (8.5-10.1); CARBON DIOXIDE 30.3 mmol/L (21.0-32.0); CHLORIDE - SERUM 104 mmol/L (98-107); CREATININE - SERUM 0.8 mg/dL (0.6-1.3); GLUCOSE 129 mg/dL (74-106); MAGNESIUM - SERUM 2.1 mg/dL (1.8-2.4); PHOSPHOROUS 3.1 mg/dL (2.5-4.9); POTASSIUM - SERUM 3.6 mmol/L (3.5-5.1); PROTEIN - SERUM 5.5 g/dL (6.4-8.2); SODIUM 140 mmol/L (136-145); UREA NITROGEN 10 mg/dL (7-18); eGFR NON AFRICAN AMERICAN 78 mL/min (90-120)
[2020-04-01 06:42] LABS: EOSINOPHILS 4 % (0-7); LYMPHOCYTES 22 % (15-50); NEUTROPHILS 69 % (40-80); PLATELET ESTIMATE NORMAL
--- NOTE | 2020-04-01 08:12 | NUR ---
RECIEVED AWAKE AND ALERT UP IN CHAIR-NOTED ABRASIVE MANNERISMS-ONE TO TWO WORD PHRASES-SR ON MONITOR-O2 AT 2L-PT STATED HUNGRY-OFFERED TO ORDER BREAKFEST-STATED FRUIT LOOPS-ASKED FOR ALTERNATIVE IF NOT AVAILABLE-STATED NOTHING"
--- NOTE | 2020-04-01 08:41 | NUR ---
REQUESTED FRUIT LOOPS FOR BREAKFEST AND NOTHING ELSE-NOT RECEPTIVE TO DIETARY CHANGES OR IMPROVEMENTS
--- NOTE | 2020-04-01 10:51 | NUR ---
AMBULATED WITH PHYSICAL THERAPY WELL-SR ON TELEMETRY
--- NOTE | 2020-04-01 15:45 | NUR ---
1330-DR STRONG AT BEDSIDE-PT ASSISTED TO BED FOR REMOVAL OF CHEST TUBES-PREMED MORPHINE 2MG IVP GIVEN -NOTED SR ON MONITOR- AT BEDSIDE-SPOKE MOMENTARILY TO -PT VERBALLY STATING I WANT TO GO HOME-DR STRONG ATTEMPTED TO EXPLAIN CURRENT STATUS AND PLANNED COURSE OF EVENTS-POOR COMPREHENSION VISUALIZED FROM PT-BECAME OOPXLJ-XOINHJDAPIP-RRDGK TUBES REMOVED BY DR STRONG 1430-DR MILLER AT BEDSIDE-PT REPEATED NEED TO GO HOME-2ND ATTEMPT MADE TO EXPLAIN CURRENT STATUS AND COURSE OF EVENTS-POOR ACCEPTANCE OR COMPREHENSION FROM PT-BE CAME WITHDRAWN TO CONVERSATION-
--- NOTE | 2020-04-01 18:26 | NUR ---
SITTING UP IN CHAIR-TALKING ON CELL PHONE WITH FAMILY MEMBERS-
[2020-04-02] VITALS (20 sets, daily range): BP systolic 99–128; BP diastolic 43–79
[2020-04-02 05:34] LABS: HEMATOCRIT 26.9 % (36.0-48.0); HEMOGLOBIN 8.2 g/dL (12-16); MCH 27.5 pg (26.0-34.0); MCHC 30.5 g/dL (31.0-37.0); MCV 90.3 fL (80.0-100.0); MEAN PLATELET VOLUME 9.1 fL (7.4-10.4); RBC 2.98 10x6/uL (4.00-5.40); RDW 16.1 % (11.5-14.5); WBC 17.5 10x3/uL (4.8-10.8)
[2020-04-02 07:00] LABS: ALBUMIN 2.1 g/dL (3.4-5.0); ANION GAP 10.3 mmol/L (8-16); BILIRUBIN - TOTAL 0.24 mg/dL (0.2-1.3); CALCIUM 7.7 mg/dL (8.5-10.1); CARBON DIOXIDE 26.8 mmol/L (21.0-32.0); CREATININE - SERUM 0.9 mg/dL (0.6-1.3); POTASSIUM - SERUM 4.1 mmol/L (3.5-5.1)
--- NOTE | 2020-04-02 07:27 | NUR ---
Up in chair. On 2l O2 via nc. Rates pain 5/10 to incision site. Midsternal incision with dressing intact. substernal TPM wires covered with dressing. James catheter in place with zackery urine noted. Pulls 750-1000 on insentive spirometer. Instructed to continue with insentive spirometer exercises 10repetitions per hour. VSS. No fever noted. Safety measures in place. Will continue to monitor.
--- NOTE | 2020-04-02 08:10 | NUR ---
AM meds given. Ate 100% of meal. Requested chocolate milk. No further needs at this time. Will continue to monitor.
--- NOTE | 2020-04-02 11:30 | NUR ---
Episode of nausea and vomiting. Zofran given. Clean gown provided.
--- NOTE | 2020-04-02 11:30 | NUR ---
Nutrition Follow-up: POD 4 CABG. Extubated 03/31. Pt reports eating well. -BM; +flatus. Diet: Diabetic Wt: 217.1# (04/02) Labs noted: Na 135, Glu 109, Ca 7.7, Alb 2.1 Meds noted: Glucophage, Protonix -Encourage PO intake and honor food preferences within diet restrictions. -Monitor wt. -RD following.
--- NOTE | 2020-04-02 11:44 | TEE ---
PATIENT:RAINA FRANZ MEDICAL RECORD: [id number] LOCATION:[place] [address] AGE OF PATIENT: 59 ADMISSION DATE: 03/27/20 SEX: F REFERRING PHYSICIAN: INTERPRETING PHYSICIAN: DEVIN STYLES MD TRANSESOPHAGEAL ECHOCARDIOGRAM Date: 03/29/20 JOESPH CHARGE Y INDICATIONS: CABG PREMEDICATIONS: PATIENT'S RESPONSE PROCEDURE DOPPLER MEASUREMENTS: LVIT LA PA 75 RA LVOT 103 RVOT 87 Asc. Ao 128 AV Gradient Peak 6.6 AV Mean 3.3 AV Area 2.7 MV Gradient Peak 3.8 MV Mean 1.7 MV Area INTERPRETATION: Doppler: 2-D: COLOR FLOW DOPPLER NORMAL SALINE STUDY: MISCELLANOUS: DIAGNOSIS: PLAN: Neonatal Intensive Care Unit Nurse:3 Dr. Avila [employer] Facility Manager: Julia ODONNELL COMMENTS: DATE OF SERVICE: PROCEDURE PERFORMED: Intraoperative transesophageal echocardiogram. DESCRIPTION OF PROCEDURE: Preoperatively shows normal LV internal dimensions. There is hypokinesis of the anterior apex, LV funtion lower limits to mildly reduced at 45% to 50%. Aortic valve is tricuspid with good valve excursion. Trivial mitral regurgitation. Postoperatively improved wall motion along the anterior apex into apical region with the EF normal. Aortic valve is tricuspid TRANSESOPHAGEAL ECHOCARDIOGRAM REPORT [id number] RAINA FRANZ with good valve excursion. Trivial mitral regurgitation. TRANSINT:[id number] Voice Confirmation ID: [id number] DOCUMENT ID: [id number] at 1144 CC: [id number] DICTATION DATE: 03/29/20 1540 INTERNET SOURCER: 03/30/20 0752 ADM IN [place] [address] [place] [address]
--- NOTE | 2020-04-02 13:47 | NUR ---
AMBULATING WITH PHYSICAL THERAPY AT THIS TIME.
--- NOTE | 2020-04-02 14:13 | NUR ---
Venous access nurse at bedside at this time.
--- NOTE | 2020-04-02 15:11 | NUR ---
CVL Dc'd at this time per order. Tolerated well. Resting comfortably. Will continue to monitor.
--- NOTE | 2020-04-02 16:39 | NUR ---
James catheter dc'd at this time per order.
[2020-04-02 18:22] LABS: BILIRUBIN NEGATIVE (NEGATIVE); GLUCOSE NEGATIVE (NEGATIVE); KETONE NEGATIVE (NEGATIVE); NITRITE NEGATIVE (NEGATIVE); UROBILINOGEN NORMAL (NORMAL)
[2020-04-02 18:23] LABS: BACTERIA FEW /hpf (NEGATIVE); EPITHELIAL CELLS OCC /hpf (0-5); RED CELLS - URINE 0-5 /hpf (0-5); WHITE CELLS - URINE 0-5 /hpf (NEGATIVE)
[2020-04-03] VITALS (19 sets, daily range): BP systolic 99–134; BP diastolic 54–96
[2020-04-03 06:49] LABS: BASOPHILS 0.1 % (0-2); EOSINOPHILS 3.1 % (0-7); HEMATOCRIT 25.6 % (36.0-48.0); IMMATURE GRANULOCYTES 0.6 % (0-5); MCH 27.7 pg (26.0-34.0); MCHC 31.3 g/dL (31.0-37.0); MCV 88.6 fL (80.0-100.0); MEAN PLATELET VOLUME 8.9 fL (7.4-10.4); MONOCYTES 8.5 % (2-11); NEUTROPHILS 67.7 % (40-80); RBC 2.89 10x6/uL (4.00-5.40); RDW 15.9 % (11.5-14.5)
[2020-04-03 06:57] LABS: PLATELET COUNT 303 10x3/uL (130-400)
--- NOTE | 2020-04-03 07:20 | NUR ---
Up in chair. On room air. O2 sat 92%. Pulls 750-1000 on I.S. Needs constant encouragement to perform I.S. exercises. Midsternal incision with dressing intact. Substernal TPM wires in place, dressing C/D/I. MIGUEL ANGEL picc line in place, saline loc. RLE harvest sites BASTER HAND. Ambulates to bathroom with assistance. Safety measures in place. Will continue to monitor.
[2020-04-03 07:26] LABS: ALKALINE PHOSPHATASE 73 U/L (30-120); ALT (SGPT) 21 U/L (10-68); BILIRUBIN - TOTAL 0.26 mg/dL (0.2-1.3); CALCIUM 7.8 mg/dL (8.5-10.1); CARBON DIOXIDE 31.4 mmol/L (21.0-32.0); CHLORIDE - SERUM 101 mmol/L (98-107); CREATININE - SERUM 0.8 mg/dL (0.6-1.3); GLUCOSE 123 mg/dL (74-106); POTASSIUM - SERUM 3.7 mmol/L (3.5-5.1); PROTEIN - SERUM 5.4 g/dL (6.4-8.2); SODIUM 138 mmol/L (136-145); eGFR NON AFRICAN AMERICAN 78 mL/min (90-120)
[2020-04-03 07:27] LABS: CALC OSMOLALITY 278 mosm/kg (275-300); UREA NITROGEN 17 mg/dL (7-18)
--- NOTE | 2020-04-03 09:07 | NUR ---
Moderate amount of formed brown stool noted at this time. Ambulating with physcical therapy. Will continue to monitor.
--- NOTE | 2020-04-03 09:29 | NUR ---
Pt went into A-fib when she ambulated with physical therapy. Hr 90s-100s. Bp 109/58. Dr. Hill notified.
--- NOTE | 2020-04-03 09:49 | NUR ---
02 sat 89-90%. Placed on 1L O2 via nc.
--- NOTE | 2020-04-03 12:04 | NUR ---
Ambulated to bathroom. Reported BM at this time. Voided in toilet. Unable to measure. PT refusing to eat at this time. States that stomach doesn't feel well. Rene offered, pt refused. Will continue to monitor.
--- NOTE | 2020-04-03 13:10 | NUR ---
Incontinent episode of urine noted at this time. Clean gown provided. Spouse at bedside. Will continue to monitor.
--- NOTE | 2020-04-03 16:30 | NUR ---
Ambulated to bathroom with minimal assist.
--- NOTE | 2020-04-03 20:28 | MORECARE ---
CASE MANAGEMENT DISCHARGE SUMMARY PATIENT: RAINA FRANZ UNIT: [id number] ADM DATE: 03/27/20 AGE: 59 : 64 SEX: F ROOM/BED: [facility] AUTHOR: PEDRO GOMEZ PHYSICIAN: REFERRING PHYSICIAN: CHANTALE STRONG MD DATE OF SERVICE: 04/03/20 Discharge Plan Patient Name: RAINA FRANZ [facility] [facility] 1960 Planned Disposition: Home with Home Health Anticipated Discharge Date: Discharge Date: Expected LOS: Initial Reviewer: [email or web address] Initial Review Date: 03/27/2020 Generated: 04/03/20 9:27 pm Patient Name: RAINA FRANZ Page 60020 at 2027 All edits/amendments must be made on the electronic document DICTATION DATE: 04/03/202026 SYSTEMS ANALYSIS MANAGER: ESAU 04/03/202026 RPT#: [id number] DC DATE: STATUS: ADM IN [facility] [address] [place] [address] END OF REPORT
--- NOTE | 2020-04-03 20:34 | MORECARE ---
CASE MANAGEMENT DISCHARGE SUMMARY PATIENT: RAINA FRANZ UNIT: [id number] ADM DATE: 03/27/20 AGE: 59 : 64 SEX: F ROOM/BED: D[facility] AUTHOR: PATRICIA,DOC PHYSICIAN: REFERRING PHYSICIAN: CHANTALE STRONG MD DATE OF SERVICE: 04/03/20 Discharge Plan Patient Name: RAINA FRANZ Facility: [facility]:[place] : 1960 Planned Disposition: Home with Home Health Anticipated Discharge Date: Discharge Date: Expected LOS: Initial Reviewer: [email or web address] Initial Review Date: 03/27/2020 Generated: 04/03/20 9:34 pm Comments DCP- Discharge Planning Updated by [email or web address]: Rena Connolly on 04/03/20 7:[address] Patient Name: RAINA FRANZ Admission Status: Elective Accout number: [id number] Admission Date: 03-27-2020 : 1960 Admission Diagnosis:ATHSCL HEART DISEASE OF [place] CORONARY ARTERY W/O ANG Attending: CHANTALE STRONG Current LOS: 7 Anticipated DC Date: Planned Disposition: Home with Home Health Primary Insurance: [employer] MEDICAID Discharge Planning Comments: CM met with patient to complete initial dc planning assessment. CM educated patient on the CM role and verbal consent given by patient to complete assessment. Patient lives at home with family. Patient is independent. At discharge patient plans to return home and feels this is a safe discharge. CM discussed availability of home health, rehab services, and medical equipment. Patient is requesting home health services upon discharge CM attempted to get GINA signed but patient requested CM come back later to get this information. Patient will have family to transport home. Patient denied known discharge needs at this time. CM will continue to follow and will assist as needed with dc plans/needs. Leather Tanner: Rena Connolly DCPIA - Discharge Planning Initial Assessment Updated by [email or web address]: Rena Connolly on 04/03/20 8:27 pm * Is the patient Alert and Oriented? Yes * How many steps to enter\exit or inside your home? * PCP FROILAN * Pharmacy [facility] * Preadmission Environment Home with Family * ADLs Independent * Equipment None * List name and contact numbers for known caregivers / representatives who currently or will assist patient after discharge: LEMUEL FRANZ - - [phone] SANGEETHA RIDDLE - SON - [phone] * Verbal permission to speak to the caregivers and representatives has been obtained from the patient. Yes * Community resources currently utilized None * Additional services required to return to the preadmission environment? No * Can the patient safely return to the preadmission environment? Yes * Has this patient been hospitalized within the prior 30 days at any hospital? No Last DP export: 04/03/20 7:28 p Patient Name: RAINA FRANZ Page [id number] at 2033 All edits/amendments must be made on the electronic document DICTATION DATE: 04/03/202033 PITCH GATHERER: ESAU 04/03/202033 RPT#: [id number] DC DATE: STATUS: ADM IN [facility] [address] [place] [address] END OF REPORT
[2020-04-04] VITALS (10 sets, daily range): BP systolic 117–149; BP diastolic 52–80
[2020-04-04 06:33] LABS: BASOPHILS 0.2 % (0-2); HEMATOCRIT 26.4 % (36.0-48.0); HEMOGLOBIN 8.2 g/dL (12-16); IMMATURE GRANULOCYTES 1.5 % (0-5); LYMPHOCYTES 20.6 % (15-50); MCH 27.3 pg (26.0-34.0); MCHC 31.1 g/dL (31.0-37.0); MEAN PLATELET VOLUME 8.9 fL (7.4-10.4); MONOCYTES 10.2 % (2-11); NEUTROPHILS 63.5 % (40-80); RDW 16.1 % (11.5-14.5); WBC 15.7 10x3/uL (4.8-10.8)
[2020-04-04 06:42] LABS: PLATELET COUNT 403 10x3/uL (130-400)
--- NOTE | 2020-04-04 07:45 | NUR ---
Sitting up in chair. Resting comfortably. On room air. O2 sat 92%. Midsternal incision with dressing c/d/i. Subternal dressing with TPM wires secured. RLE harvest sites yola. Picc line to MIGUEL ANGEL Saline loc. Safety measures in place. Will continue to monitor.
[2020-04-04 08:19] LABS: ANION GAP 9.4 mmol/L (8-16); BILIRUBIN - TOTAL 0.26 mg/dL (0.2-1.3); CALCIUM 8.1 mg/dL (8.5-10.1); CARBON DIOXIDE 29.3 mmol/L (21.0-32.0); CREATININE - SERUM 0.9 mg/dL (0.6-1.3); POTASSIUM - SERUM 3.7 mmol/L (3.5-5.1); PROTEIN - SERUM 5.9 g/dL (6.4-8.2)
--- NOTE | 2020-04-04 10:15 | NUR ---
Nutrition Follow-up: POD 6 CABG. Nursing reports pt does not want to eat 2/2 being served a roll with what appeared to be mold on it yesterday. Director of Food & Nutrition was notified. Declines Glucerna. Diet: Diabetic Wt: 216# (04/04) Last BM: 04/03 Labs noted: Glu 107, Ca 8.1, Alb 2.0 Meds noted: Lasix, Micro K, Glucophage, Humalog, Protonix -Encourage PO intake and honor food preferences within diet restrictions. -Monitor wt. -RD following.
[2020-04-04] MEDS ORDERED: AMIODARONE HCL200 MG PO (11:50)
[2020-04-04] MEDS ORDERED: LOPRESSOR25 MG PO (11:51)
[2020-04-04] MEDS ORDERED: KEFLEX500 MG PO (11:54)
[2020-04-04] MEDS ORDERED: PERCOCET 5-3251 TAB PO ×3 (11:55→12:42)
--- NOTE | 2020-04-04 12:00 | NUR ---
UA collected with in and out cath per oder. 400cc of yellow urine noted. Tolerated well.
[2020-04-04 12:30] LABS: BILIRUBIN NEGATIVE (NEGATIVE); GLUCOSE NEGATIVE (NEGATIVE); KETONE NEGATIVE (NEGATIVE); NITRITE NEGATIVE (NEGATIVE); UROBILINOGEN NORMAL (NORMAL)
--- NOTE | 2020-04-04 12:46 | MORECARE ---
CASE MANAGEMENT DISCHARGE SUMMARY PATIENT: RAINA FRANZ UNIT: [id number] ADM DATE: 03/27/20 AGE: 59 : 64 SEX: F ROOM/BED: D[facility] AUTHOR: PATRICIA,DOC PHYSICIAN: REFERRING PHYSICIAN: CHANTALE STRONG MD DATE OF SERVICE: 04/04/20 Discharge Plan Patient Name: RAINA FRANZ Facility: [facility]:[place] : 1960 Planned Disposition: Home with Home Health Anticipated Discharge Date: Discharge Date: Expected LOS: Initial Reviewer: [email or web address] Initial Review Date: 03/27/2020 Generated: 04/04/20 1:45 pm Comments DCP- Discharge Planning Updated by [email or web address]: Rena Connolly on 04/04/20 11:[address] CM spoke with Dr. Wes Morales office regarding patient's request for Home Health Services. They will have Dr. Morales nurse to call CM back. If CM doesn't receive a call back before patient discharges then patient will need to follow up with Dr. Morales for Home Health orders. CM will continue to follow and assist as needed with discharge planning / needs. DCP- Discharge Planning Updated by [email or web address]: Rena Connolly on 04/03/20 7:[address] Patient Name: RAINA FRANZ Admission Status: Elective Accout number: [id number] Admission Date: 03-27-2020 : 1960 Admission Diagnosis:ATHSCL HEART DISEASE OF [place] CORONARY ARTERY W/O ANG Attending: CHANTALE STRONG Current LOS: 7 Anticipated DC Date: Planned Disposition: Home with Home Health [facility] Insurance: [facility] MEDICA[facility] Discharge Planning Comments: CM met with patient to complete initial dc planning assessment. CM educated patient on the CM role and verbal consent given by patient to complete assessment. Patient lives at home with family. Patient is independent. At discharge patient plans to return home and feels this is a safe discharge. CM discussed availability of home health, rehab services, and medical equipment. Patient is requesting home health services upon discharge CM attempted to get GINA signed but patient requested CM come back later to get this information. Patient will have family to transport home. Patient denied known discharge needs at this time. CM will continue to follow and will assist as needed with dc plans/needs. Burnt Lime Drawer: Rena Connolly DCPIA - Discharge Planning Initial Assessment Updated by [email or web address]: Rena Connolly on 04/03/20 8:27 pm * Is the patient Alert and Oriented? Yes * How many steps to enter\exit or inside your home? * PCP FROILAN * Pharmacy [facility] * Preadmission Environment Home with Family * ADLs Independent * Equipment None * List name and contact numbers for known caregivers / representatives who currently or will assist patient after discharge: LEMUEL FRANZ - - [phone] SANGEETHA RIDDLE - SON - [phone] * Verbal permission to speak to the caregivers and representatives has been obtained from the patient. Yes * Community resources currently utilized None * Additional services required to return to the preadmission environment? No * Can the patient safely return to the preadmission environment? Yes * Has this patient been hospitalized within the prior 30 days at any hospital? No Last DP export: 04/03/20 7:34 p Patient Name: RAINA FRANZ Page [id number] at 1246 All edits/amendments must be made on the electronic document DICTATION DATE: 04/04/201244 RADIO ANNOUNCER: ESAU 04/04/201244 RPT#: [id number] DC DATE: STATUS: ADM IN [facility] [address] [place] [address] END OF REPORT
--- NOTE | 2020-04-04 13:36 | NUR ---
Appointment set up with cardiology on Apr 18, 2020 at 1115. Appointment with pulmonology on at 1130.
--- NOTE | 2020-04-04 14:30 | NUR ---
Discharge instructions reviewed with pt and spouse. Personal belongings sent with patient. Wheeled out to personal vehicle.
--- NOTE | 2020-04-05 11:14 | MORECARE ---
CASE MANAGEMENT DISCHARGE SUMMARY PATIENT: RAINA FRANZ UNIT: [id number] ADM DATE: 03/27/20 AGE: 59 : 64 SEX: F ROOM/BED: [facility] AUTHOR: PATRICIA,DOC PHYSICIAN: REFERRING PHYSICIAN: CHANTALE STRONG MD DATE OF SERVICE: 04/05/20 Discharge Plan Patient Name: RAINA FRANZ Facility: [facility]:[place] : 1960 Planned Disposition: Home with Home Health Anticipated Discharge Date: Discharge Date: 04/04/2020 Expected LOS: Initial Reviewer: [email or web address] Initial Review Date: 03/27/2020 Generated: 04/05/20 12:13 pm Comments DCP- Discharge Planning Updated by [email or web address]: Rena Connolly on 04/04/20 11:[address] CM spoke with Dr. Wes Morales office regarding patient's request for Home Health Services. They will have Dr. Morales nurse to call CM back. If CM doesn't receive a call back before patient discharges then patient will need to follow up with Dr. Morales for Home Health orders. CM will continue to follow and assist as needed with discharge planning / needs. DCP- Discharge Planning Updated by [email or web address]: Rena Connolly on 04/03/20 7:[address] Patient Name: RAINA FRANZ Admission Status: Elective Accout number: [id number] Admission Date: 03-27-2020 : 1960 Admission Diagnosis:ATHSCL HEART DISEASE OF [place] CORONARY ARTERY W/O ANG Attending: CHANTALE STRONG Current LOS: 7 Anticipated DC Date: Planned Disposition: Home with Home Health Primary Insurance: [facility] MANAGED MEDICAID Discharge Planning Comments: CM met with patient to complete initial dc planning assessment. CM educated patient on the CM role and verbal consent given by patient to complete assessment. Patient lives at home with family. Patient is independent. At discharge patient plans to return home and feels this is a safe discharge. CM discussed availability of home health, rehab services, and medical equipment. Patient is requesting home health services upon discharge CM attempted to get GINA signed but patient requested CM come back later to get this information. Patient will have family to transport home. Patient denied known discharge needs at this time. CM will continue to follow and will assist as needed with dc plans/needs. Press Smith Helper: Rena Connolly DCPIA - Discharge Planning Initial Assessment Updated by [email or web address]: Rena Connolly on 04/03/20 8:27 pm * Is the patient Alert and Oriented? Yes * How many steps to enter\exit or inside your home? * PCP FROILAN * Pharmacy [facility] * Preadmission Environment Home with Family * ADLs Independent * Equipment None * List name and contact numbers for known caregivers / representatives who currently or will assist patient after discharge: LEMUEL FRANZ - - [phone] SANGEETHA RIDDLE - SON - [phone] * Verbal permission to speak to the caregivers and representatives has been obtained from the patient. Yes * Community resources currently utilized None * Additional services required to return to the preadmission environment? No * Can the patient safely return to the preadmission environment? Yes * Has this patient been hospitalized within the prior 30 days at any hospital? No Last DP export: 04/04/20 11:46 a Patient Name: RAINA FRANZ Page 98501 at 1114 All edits/amendments must be made on the electronic document DICTATION DATE: 04/05/201112 RESEARCH AND DEVELOPMENT ENGINEER: ESAU 04/05/201112 RPT#: [id number] DC DATE:04/04/20 STATUS: DIS IN [facility] [address] [place] [address] END OF REPORT
== END 2020-04-04 14:34 | disposition home health service (06) | DRG 235 ==
LOC: D.M2 18:45 → D.CVICU 18:45
PROVIDERS: Family Medicine; Family Medicine Adult Medicine; Internal Medicine Interventional Cardiology; ADMIT Thoracic Surgery (Cardiothoracic Vascular Surgery); ATTEND Thoracic Surgery (Cardiothoracic Vascular Surgery)
PROC: 5A02210 Assistance with Cardiac Output using Balloon Pump, Continuous (ICD-10-PCS; principal; 2020-03-28 10:51)
PROC: 02100Z9 Bypass Coronary Artery, One Artery from Left Internal Mammary, Open Approach (ICD-10-PCS; 2020-03-29)
PROC: 021009W Bypass Coronary Artery, One Artery from Aorta with Autologous Venous Tissue, Open Approach (ICD-10-PCS; 2020-03-29)
PROC: 06BP4ZZ Excision of Right Saphenous Vein, Percutaneous Endoscopic Approach (ICD-10-PCS; 2020-03-29)
PROC: 5A1221Z Performance of Cardiac Output, Continuous (ICD-10-PCS; 2020-03-29)
PROC: B24BZZ4 Ultrasonography of Heart with Aorta, Transesophageal (ICD-10-PCS; 2020-03-29)
PROC: 0B9C8ZX Drainage of Right Upper Lung Lobe, Via Natural or Artificial Opening Endoscopic, Diagnostic (ICD-10-PCS; 2020-03-30)
PROC: 05HY33Z Insertion of Infusion Device into Upper Vein, Percutaneous Approach (ICD-10-PCS; 2020-04-02)
DX: I25.110 Atherosclerotic heart disease of native coronary artery with unstable angina pectoris (principal); I21.9 Acute myocardial infarction, unspecified; I50.21 Acute systolic (congestive) heart failure; J96.01 Acute respiratory failure with hypoxia; F17.203 Nicotine dependence unspecified, with withdrawal; N39.0 Urinary tract infection, site not specified; J98.11 Atelectasis; I25.5 Ischemic cardiomyopathy; E11.40 Type 2 diabetes mellitus with diabetic neuropathy, unspecified; J44.9 Chronic obstructive pulmonary disease, unspecified; F32.9 Major depressive disorder, single episode, unspecified; E66.9 Obesity, unspecified; Z68.33 Body mass index [BMI] 33.0-33.9, adult; R53.81 Other malaise; D64.9 Anemia, unspecified; D72.829 Elevated white blood cell count, unspecified; I48.0 Paroxysmal atrial fibrillation

== ENCOUNTER → 2020-05-01 09:49 | Outpatient (CLI) | payer OTHER ==
[2020-03-28 14:41] VITALS: BMI 33.6
[~2020-05-01 09:49] MED LIST: AMIODARONE HCL200 MG PO; CELEXA20 MG PO; GLUCOPHAGE500 MG PO; INDERAL LA160 MG PO; KEFLEX500 MG PO; LIPITOR10 MG PO; LOPRESSOR25 MG PO; MELATONIN10 M1 PO; NEURONTIN800 MG PO; PERCOCET 5-3251 TAB PO
[2020-05-01 10:36] LABS: BASOPHILS 0.4 % (0-2); EOSINOPHILS 6.1 % (0-7); HEMATOCRIT 36.3 % (36.0-48.0); IMMATURE GRANULOCYTES 0.3 % (0-5); LYMPHOCYTES 20.5 % (15-50); MCH 26.1 pg (26.0-34.0); MCHC 30.3 g/dL (31.0-37.0); MCV 86.2 fL (80.0-100.0); MEAN PLATELET VOLUME 8.5 fL (7.4-10.4); MONOCYTES 6.5 % (2-11); NEUTROPHILS 66.2 % (40-80); RBC 4.21 10x6/uL (4.00-5.40); RDW 15.9 % (11.5-14.5); WBC 14.7 10x3/uL (4.8-10.8)
[2020-05-01 10:41] LABS: PLATELET COUNT 529 10x3/uL (130-400)
[2020-05-01 10:45] LABS: ANION GAP 15.3 mmol/L (8-16); CALCIUM 9.1 mg/dL (8.5-10.1); CARBON DIOXIDE 21.6 mmol/L (21.0-32.0); CREATININE - SERUM 1.1 mg/dL (0.6-1.3); POTASSIUM - SERUM 4.9 mmol/L (3.5-5.1)
== END | disposition home or self-care (01) ==
LOC: D.RAD 09:49
PROVIDERS: ATTEND Thoracic Surgery (Cardiothoracic Vascular Surgery)
DX: Z98.890 Other specified postprocedural states (principal)

== ENCOUNTER 2020-05-08 11:41 | Observation (INO) | payer OTHER ==
[~2020-05-08] VITALS: Ht 165.1 cm; Wt 88.6 kg
[2020-05-08] VITALS (10 sets, daily range): BP systolic 105–139; BP diastolic 55–79
[2020-05-08 12:08] LABS: BASOPHILS 0.4 % (0-2); EOSINOPHILS 4.4 % (0-7); HEMATOCRIT 34.8 % (36.0-48.0); HEMOGLOBIN 10.5 g/dL (12-16); IMMATURE GRANULOCYTES 0.2 % (0-5); LYMPHOCYTES 14.4 % (15-50); MCHC 30.2 g/dL (31.0-37.0); MCV 86.1 fL (80.0-100.0); MEAN PLATELET VOLUME 8.7 fL (7.4-10.4); MONOCYTES 4.3 % (2-11); NEUTROPHILS 76.3 % (40-80); PLATELET COUNT 528 10x3/uL (130-400); RBC 4.04 10x6/uL (4.00-5.40); RDW 15.5 % (11.5-14.5); WBC 13.7 10x3/uL (4.8-10.8)
[2020-05-08 12:15] LABS: APTT 29.7 SECONDS (22.8-39.4); CALC OSMOLALITY 276 mosm/kg (275-300); CALCIUM 9.2 mg/dL (8.5-10.1); CARBON DIOXIDE 20.9 mmol/L (21.0-32.0); CHLORIDE - SERUM 103 mmol/L (98-107); CREATININE - SERUM 1.1 mg/dL (0.6-1.3); INR 1.03 (0.85-1.17); POTASSIUM - SERUM 4.9 mmol/L (3.5-5.1); PROTIME 13.4 SECONDS (11.6-15.0); SODIUM 136 mmol/L (136-145); UREA NITROGEN 13 mg/dL (7-18); eGFR NON AFRICAN AMERICAN 54 mL/min (90-120)
[2020-05-08 12:17] LABS: GLUCOSE 184 mg/dL (74-106)
[2020-05-08 12:36] LABS: ALBUMIN 3.2 g/dL (3.4-5.0); ALKALINE PHOSPHATASE 114 U/L (30-120); ALT (SGPT) 10 U/L (10-68); BILIRUBIN - TOTAL 0.26 mg/dL (0.2-1.3); CKMB 2.1 U/L (0.0-3.6); CREATINE KINASE 30 UL (21-215); MAGNESIUM - SERUM 1.6 mg/dL (1.8-2.4); PROTEIN - SERUM 7.4 g/dL (6.4-8.2); THYROID STIMULATING HORMONE 1.89 uIU/mL (0.36-3.74)
[2020-05-08 12:39] LABS: TROPONIN-I 0.148 ng/mL (0.000-0.060)
--- NOTE | 2020-05-08 13:12 | NUR ---
BS OBTAINED 138 MG/DL.
--- NOTE | 2020-05-08 16:36 | NUR ---
1630 FSBS NOT CHECKED, PT AREADY EATEN.
--- NOTE | 2020-05-08 16:37 | NUR ---
COVID SWAB COLLECDTED AND SENT TO THE LAB.
[2020-05-08 16:44] LABS: CKMB 2.2 U/L (0.0-3.6); CREATINE KINASE 41 UL (21-215)
[2020-05-08 16:45] LABS: TROPONIN-I 0.421 ng/mL (0.000-0.060)
--- NOTE | 2020-05-08 18:45 | NUR ---
SANDWICH TRAY PROVIDED.
--- NOTE | 2020-05-08 18:48 | NUR ---
METFORMIN ON HOLD FOR 48 HOURS D/T CT SCAN WITH CONTRAST.
--- NOTE | 2020-05-08 19:09 | NUR ---
REPORT TO TO GEORGES.
[2020-05-08 22:44] LABS: CKMB 2.2 U/L (0.0-3.6); CREATINE KINASE 40 UL (21-215)
[2020-05-08 22:46] LABS: TROPONIN-I 0.672 ng/mL (0.000-0.060)
[2020-05-09] VITALS (9 sets, daily range): BP systolic 89–139; BP diastolic 44–73; Ht 165.1 cm; Wt 88.6 kg
[2020-05-09 07:18] LABS: BASOPHILS 0.6 % (0-2); EOSINOPHILS 4.3 % (0-7); HEMATOCRIT 34.4 % (36.0-48.0); HEMOGLOBIN 10.3 g/dL (12-16); IMMATURE GRANULOCYTES 0.3 % (0-5); MCH 25.9 pg (26.0-34.0); MCHC 29.9 g/dL (31.0-37.0); MCV 86.4 fL (80.0-100.0); MEAN PLATELET VOLUME 8.8 fL (7.4-10.4); MONOCYTES 6.5 % (2-11); NEUTROPHILS 52.3 % (40-80); PLATELET COUNT 522 10x3/uL (130-400); RBC 3.98 10x6/uL (4.00-5.40); RDW 15.5 % (11.5-14.5); WBC 9.4 10x3/uL (4.8-10.8)
--- NOTE | 2020-05-09 07:58 | NUR ---
MEAL TRAY PROVIDED.
[2020-05-09 08:04] LABS: ALBUMIN 3.2 g/dL (3.4-5.0); ALKALINE PHOSPHATASE 105 U/L (30-120); ALT (SGPT) 11 U/L (10-68); BILIRUBIN - TOTAL 0.21 mg/dL (0.2-1.3); CARBON DIOXIDE 25.3 mmol/L (21.0-32.0); CHLORIDE - SERUM 105 mmol/L (98-107); CKMB 1.9 U/L (0.0-3.6); CREATINE KINASE 36 UL (21-215); CREATININE - SERUM 1.1 mg/dL (0.6-1.3); MAGNESIUM - SERUM 1.5 mg/dL (1.8-2.4); PHOSPHOROUS 4.2 mg/dL (2.5-4.9); PROTEIN - SERUM 7.2 g/dL (6.4-8.2); SODIUM 139 mmol/L (136-145); UREA NITROGEN 12 mg/dL (7-18); eGFR NON AFRICAN AMERICAN 54 mL/min (90-120)
[2020-05-09 08:13] LABS: CALC OSMOLALITY 278 mosm/kg (275-300); GLUCOSE 116 mg/dL (74-106); TROPONIN-I 0.537 ng/mL (0.000-0.060)
[2020-05-09 11:01] LABS: CKMB 1.4 U/L (0.0-3.6); CREATINE KINASE 33 UL (21-215)
[2020-05-09 11:02] LABS: TROPONIN-I 0.366 ng/mL (0.000-0.060)
--- NOTE | 2020-05-09 11:53 | NUR ---
FSBS 167
--- NOTE | 2020-05-09 16:35 | NUR ---
FSBS 158
[2020-05-09 17:13] LABS: CKMB 1.7 U/L (0.0-3.6); CREATINE KINASE 36 UL (21-215)
[2020-05-09 17:17] LABS: TROPONIN-I 0.391 ng/mL (0.000-0.060)
--- NOTE | 2020-05-09 17:26 | NUR ---
METFORMIN ON HOLD FOR 48 HRS D/T CT WITH CONTRAST
--- NOTE | 2020-05-09 17:46 | MORECARE ---
CASE MANAGEMENT DISCHARGE SUMMARY PATIENT: RAINA FRANZ UNIT: [id number] ADM DATE: 05/08/20 AGE: 59 : 64 SEX: F ROOM/BED: D.6897 AUTHOR: PEDRO GOMEZ PHYSICIAN: REFERRING PHYSICIAN: CHRISTINE MILLER MD DATE OF SERVICE: 05/09/20 Discharge Plan Patient Name: RAINA FRANZ Facility: [facility]:[place] : 1960 Planned Disposition: Anticipated Discharge Date: Discharge Date: Expected LOS: Initial Reviewer: [email or web address] Initial Review Date: 05/08/2020 Generated: 05/09/20 6:45 pm External Providers External Provider: [employer] Next Contact Date: Service Request Date: Service Type: Resolution: Reviewer: Comments: Patient Name: RAINA FRANZ Page [phone] at 1746 All edits/amendments must be made on the electronic document DICTATION DATE: 05/09/201744 CLINICAL GENETICIST: ESAU 05/09/201744 RPT#: [id number] DC DATE: STATUS: ADM IN [facility] [address] [place] [address] END OF REPORT
[2020-05-10 06:23] LABS: BASOPHILS 0.3 % (0-2); EOSINOPHILS 5.5 % (0-7); HEMATOCRIT 31.4 % (36.0-48.0); HEMOGLOBIN 9.4 g/dL (12-16); IMMATURE GRANULOCYTES 0.3 % (0-5); LYMPHOCYTES 29.8 % (15-50); MCH 25.9 pg (26.0-34.0); MCHC 29.9 g/dL (31.0-37.0); MCV 86.5 fL (80.0-100.0); MEAN PLATELET VOLUME 8.6 fL (7.4-10.4); NEUTROPHILS 57.1 % (40-80); PLATELET COUNT 443 10x3/uL (130-400); RBC 3.63 10x6/uL (4.00-5.40); RDW 15.7 % (11.5-14.5); WBC 11.7 10x3/uL (4.8-10.8)
[2020-05-10 06:42] LABS: ANION GAP 10.9 mmol/L (8-16); CALCIUM 8.6 mg/dL (8.5-10.1); CARBON DIOXIDE 26.7 mmol/L (21.0-32.0); CREATININE - SERUM 1.1 mg/dL (0.6-1.3); MAGNESIUM - SERUM 1.7 mg/dL (1.8-2.4); POTASSIUM - SERUM 4.6 mmol/L (3.5-5.1)
[2020-05-10 08:22] VITALS: BP 118/66
[2020-05-10] MEDS ORDERED: RANEXA500 MG PO (10:02)
--- NOTE | 2020-05-10 12:34 | NUR ---
IV AND TELEMETRY DCD. DC PLANS GIVEN. UNDERSTANDING VOICED. ESCORTED TO CAR BY W/C.
--- NOTE | 2020-05-11 09:09 | MORECARE ---
CASE MANAGEMENT DISCHARGE SUMMARY PATIENT: RAINA FRANZ UNIT: [id number] ADM DATE: 05/08/20 AGE: 59 : 64 SEX: F ROOM/BED: D.9767 AUTHOR: PEDRO GOMEZ PHYSICIAN: REFERRING PHYSICIAN: CHRISTINE MILLER MD DATE OF SERVICE: 05/11/20 Discharge Plan Patient Name: RAINA FRANZ [facility] [facility] 1960 Planned Disposition: Anticipated Discharge Date: Discharge Date: 05/10/2020 Expected LOS: Initial Reviewer: [email or web address] Initial Review Date: 05/08/2020 Generated: 05/11/20 10:08 am Last DP export: 05/09/20 4:46 p Patient Name: RAINA FRANZ Page [phone] at 0909 All edits/amendments must be made on the electronic document DICTATION DATE: 05/11/20908 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
== END 2020-05-10 12:35 | disposition home or self-care (01) ==
LOC: D.ER 11:41 → OBSVTIME 17:04 → D.EDHOLD 17:04 → D.M2 05-09 16:34
PROVIDERS: Family Medicine; ADMIT Family Medicine; ATTEND Family Medicine
DX: R79.89 Other specified abnormal findings of blood chemistry (principal); R07.9 Chest pain, unspecified; E11.9 Type 2 diabetes mellitus without complications; J44.9 Chronic obstructive pulmonary disease, unspecified; I25.10 Atherosclerotic heart disease of native coronary artery without angina pectoris; I25.5 Ischemic cardiomyopathy

== ENCOUNTER → 2020-05-29 10:15 | Outpatient (CLI) | payer OTHER ==
[2020-05-09 18:05] VITALS: BMI 32.5
[~2020-05-29 10:15] MED LIST changes: +RANEXA500 MG PO
== END | disposition home or self-care (01) ==
LOC: D.RAD 10:15
PROVIDERS: ATTEND Internal Medicine Pulmonary Disease
DX: Z11.59 Encounter for screening for other viral diseases (principal)

== ENCOUNTER → 2020-10-17 12:59 | Outpatient (CLI) | payer OTHER ==
[2020-06-28 12:15] VITALS: BMI 32.1
[~2020-10-17 12:59] MED LIST changes: +MUCINEX DM ER1 EAC1 PO; +TESSALON PERLE100 MG PO; +TYLENOL W/CODEI1 TAB PO; +ULTRAM50 MG PO
== END | disposition home or self-care (01) ==
LOC: D.RAD 12:59
PROVIDERS: ATTEND Thoracic Surgery (Cardiothoracic Vascular Surgery)
DX: J44.9 Chronic obstructive pulmonary disease, unspecified (principal)